=== PATIENT | female | born 1980 | race Caucasian/White ===

== ENCOUNTER 2021-03-01 19:29 | Emergency (ER) | payer MEDICAID ==
[~2021-03-01] VITALS: Ht 152.4 cm; Wt 67.8 kg
[2021-03-01] MEDS ORDERED: ALBUTEROL/IPRATROPIUM 2.5MG/0.5MG, 3 ML NEB ONE (20:30)
[2021-03-01] MEDS ORDERED: ACETAMINOPHEN 500 MG TABLET PO ONE (20:30)
[2021-03-01 20:50] VITALS: BP 111/79
--- NOTE | 2021-03-01 21:00 | NUR ---
PT AMBULATED TO ROOM WITHOUT DIFFICULTY, PT HAS FRIEND BEDSIDE. PT HAS C/O COUGH AND "ASTHMA SYMTOMS" PT ON MONITOR WITH PT VSS. PT HAS COUGH. PT A/O X4
== END 2021-03-01 21:23 | disposition home or self-care (01) ==
LOC: ED 20:45
DX: J45.901 Unspecified asthma with (acute) exacerbation (principal); J02.9 Acute pharyngitis, unspecified
CPT/HCPCS: 94640; 99283; J7512